=== PATIENT | male | born 2005 | race Caucasian/White ===

== ENCOUNTER 2024-09-23 17:29 | Emergency (ER) | payer BC ==
[2024-09-23] MEDS ORDERED: Acetaminophen 500 MG TAB ONE (17:46)
[2024-09-23] MEDS ORDERED: Ondansetron ODT 4 MG TAB ONE (18:08)
[2024-09-23 18:17] LABS: Bacteria/HPF None Seen HPF (None Seen); Bilirubin Negative (Negative); Blood, Urine Negative (Negative); CAUTI Indications for Culture Pelvic or flank pain; Clarity Clear (Clear); Glucose, Urine (Dipstick) Normal (Negative); Ketone, Urine Negative (Negative); Leukocyte Negative Leu/uL (Negative); Nitrite Negative (Negative); Protein, Urine (Dipstick) 20 mg/dL (Neg-Trace); RBC/HPF 0-3 HPF (0-3); Specific Gravity, Urine 1.034 (1.002-1.036); Squamous Epithelial None Seen HPF (0-3); Urobilinogen Normal mg/dL (Less than 2); WBC/HPF 0-3 HPF (0-3)
[2024-09-23 18:18] LABS: Urine Culture Reflex No No
[2024-09-24 06:18] LABS: Chlam.trachomatis by PCR,Urine Not Detected (NotDetected); GC N.gonorrhoeae PCR,UrineVOID Not Detected (NotDetected)
== END 2024-09-23 19:17 | disposition home or self-care (01) ==
LOC: ERS 17:29
DX: R11.10 Vomiting, unspecified (principal); R30.0 Dysuria; R50.9 Fever, unspecified; I10 Essential (primary) hypertension; Z55.6 Problems related to health literacy
CPT/HCPCS: 81001; 87428; 87491; 87591; 99283; Q0162